=== PATIENT | male | born 1930 | race Caucasian/White ===

== ENCOUNTER 2017-06-29 10:37 | Inpatient (IN) | payer OTHER, MEDICARE ==
[~2017-06-29] VITALS: Ht 170.2 cm; Wt 85.5 kg
[2017-06-29] MEDS ORDERED: ALBU90OI6 INH (10:50)
[2017-06-29] MEDS ORDERED: METO50 PO (10:51)
[2017-06-29] MEDS ORDERED: OXYB5 PO (10:51)
[2017-06-29] MEDS ORDERED: TAMS.4ER PO (11:23)
[2017-06-29] MEDS ORDERED: FISH OIL 1,001000 MG PO (11:24)
[2017-06-29] MEDS ORDERED: Tylenol325 MG PO (11:25)
[2017-06-29] MEDS ORDERED: CALCIUM/VITAMIN D (11:26)
[2017-06-29 14:11] LABS: Hematocrit 28.4 % (37.0-53.0); Hemoglobin 8.3 g/dL (13.5-17.5); Mean Corpuscular HGB 21.4 pg (26.0-34.0); Mean Corpuscular HGB Conc 29.2 g/dL (31.5-36.5); Mean Corpuscular Volume 73 fL (80-100); Mean Platelet Volume 8.7 fL (9.1-12.4); Platelet Count 453 K/mm3 (150-400); RDW Coefficient Variation 19.2 % (11.7-14.2); RDW Standard Deviation 50.4 fL (35.1-46.3); Red Blood Cell Count 3.87 M/mm3 (4.30-5.90); White Blood Cell Count 14.64 K/mm3 (4.00-11.30)
[2017-06-29 14:27] LABS: Alanine Aminotransfer (ALT/SGP 13 U/L (12-78); Albumin, Blood 2.6 g/dL (3.4-5.0); Albumin/Globulin Ratio 0.6 (0.8-1.8); Alk Phos 115 U/L (50-136); Anion Gap 10 mmol/L (6-16); Aspartate Aminotrans (AST/SGOT 13 U/L (12-37); Bilirubin, Total 0.4 mg/dL (0.1-1.0); Blood Urea Nitrogen 18 mg/dL (8-24); Bun/Creatinine Ratio 20.3 (12.0-20.0); CO2, Blood 25 mmol/L (21-32); Calcium, Blood 9.9 mg/dL (8.5-10.1); Chloride, Blood 104 mmol/L (98-108); Creatinine, Blood 0.89 mg/dL (0.60-1.20); Glomerular Filtration Rate >60 (60-); Glucose, Blood 169 mg/dL (70-99); Potassium, Blood 3.6 mmol/L (3.5-5.5); Sodium, Blood 139 mmol/L (136-145); Total Protein, Blood 6.6 g/dL (6.4-8.2)
[2017-06-29 19:27] LABS: Hematocrit 27.7 % (37.0-53.0)
[2017-06-30 02:27] LABS: Hematocrit 26.5 % (37.0-53.0); Hemoglobin 7.6 g/dL (13.5-17.5)
[2017-06-30 08:13] LABS: Hematocrit 25.7 % (37.0-53.0); Hemoglobin 7.3 g/dL (13.5-17.5); Mean Corpuscular HGB Conc 28.4 g/dL (31.5-36.5); Mean Corpuscular Volume 74 fL (80-100); Mean Platelet Volume 8.9 fL (9.1-12.4); Platelet Count 385 K/mm3 (150-400); RDW Coefficient Variation 19.4 % (11.7-14.2); RDW Standard Deviation 51.9 fL (35.1-46.3); Red Blood Cell Count 3.47 M/mm3 (4.30-5.90); White Blood Cell Count 9.21 K/mm3 (4.00-11.30)
[2017-06-30 08:30] LABS: Albumin, Blood 2.3 g/dL (3.4-5.0); Anion Gap 9 mmol/L (6-16); Blood Urea Nitrogen 17 mg/dL (8-24); Bun/Creatinine Ratio 16.3 (12.0-20.0); CO2, Blood 25 mmol/L (21-32); Calcium, Blood 9.1 mg/dL (8.5-10.1); Chloride, Blood 109 mmol/L (98-108); Creatinine, Blood 1.04 mg/dL (0.60-1.20); Glomerular Filtration Rate >60 (60-); Glucose, Blood 122 mg/dL (70-99); Phosphorus, Blood 1.5 mg/dL (2.5-4.9); Potassium, Blood 3.6 mmol/L (3.5-5.5); Sodium, Blood 143 mmol/L (136-145)
[2017-06-30 14:04] LABS: Hemoglobin 7.4 g/dL (13.5-17.5)
[2017-07-01 08:54] LABS: Hematocrit 27.5 % (37.0-53.0); Hemoglobin 7.8 g/dL (13.5-17.5); Mean Corpuscular HGB Conc 28.4 g/dL (31.5-36.5); Mean Corpuscular Volume 74 fL (80-100); Mean Platelet Volume 8.3 fL (9.1-12.4); Platelet Count 394 K/mm3 (150-400); RDW Coefficient Variation 19.2 % (11.7-14.2); RDW Standard Deviation 51.8 fL (35.1-46.3); Red Blood Cell Count 3.71 M/mm3 (4.30-5.90); White Blood Cell Count 10.72 K/mm3 (4.00-11.30)
[2017-07-02] MEDS ORDERED: PANT40 PO (15:13)
== END 2017-07-02 15:40 | disposition home or self-care (01) | DRG 378 ==
LOC: ER 10:37 → MEDS 11:15
PROVIDERS: Internal Medicine
PROC: 3E0234Z Introduction of Serum, Toxoid and Vaccine into Muscle, Percutaneous Approach (ICD-10-PCS; principal; 2017-06-29)
DX: K92.0 Hematemesis (principal); D62 Acute posthemorrhagic anemia; I48.2 Chronic atrial fibrillation; D63.8 Anemia in other chronic diseases classified elsewhere; E11.9 Type 2 diabetes mellitus without complications; E78.5 Hyperlipidemia, unspecified; E66.9 Obesity, unspecified; F03.90 Unspecified dementia, unspecified severity, without behavioral disturbance, psychotic disturbance, mood disturbance, and anxiety; J44.9 Chronic obstructive pulmonary disease, unspecified; Z23 Encounter for immunization; N40.0 Benign prostatic hyperplasia without lower urinary tract symptoms; Z66 Do not resuscitate; I10 Essential (primary) hypertension; Z95.2 Presence of prosthetic heart valve; Z89.512 Acquired absence of left leg below knee; Z68.29 Body mass index [BMI] 29.0-29.9, adult; K21.0 Gastro-esophageal reflux disease with esophagitis
CPT/HCPCS: 36415; 80053; 80069; 83036; 85014; 85018; 85027; 94760; 99285; C9113; J7030